=== PATIENT | female | born 1950 | race Caucasian/White ===

== ENCOUNTER 2020-09-29 08:27 | Observation (INO) ==
[2020-09-29] MEDS ORDERED: CeFAZolin Syr 3,000MG/30 ML 3,000 MG/30 ML SYRINGE IVPB ONE (08:52)
[2020-09-29] MEDS ORDERED: Ringers Solution, Lactated 1,000 ML IVC SCH ×2 (09:00→15:09)
[2020-09-29] MEDS ORDERED: *HR* Remifentanil 1 MG VIAL IVP ONE ×2 (09:25→12:26)
[2020-09-29] MEDS ORDERED: Dexamethasone 4 MG/ML VIAL ONE (09:25)
[2020-09-29] MEDS ORDERED: *HR* Midazolam HCl 2 MG/2 ML VIAL ONE (09:25)
[2020-09-29] MEDS ORDERED: *HR* Phenylephrine 10 MG/ML VIAL ONE ×2 (09:25→12:29)
[2020-09-29] MEDS ORDERED: Ondansetron 4 MG/2 ML VIAL ONE (09:25)
[2020-09-29] MEDS ORDERED: Lidocaine -MPF 4% 5 ML AMPUL ONE (09:25)
[2020-09-29] MEDS ORDERED: *HR* Propofol 200 MG/20 ML VIAL IVP ONE (09:25)
[2020-09-29] MEDS ORDERED: *HR* HYDROMORPHONE 2 MG/ML VIAL ONE (09:25)
[2020-09-29] MEDS ORDERED: Lidocaine -MPF 2% 2 ML VIAL ONE (09:25)
[2020-09-29] MEDS ORDERED: *HR* FentaNYL (PF) 100 MCG/2 ML VIAL ONE (09:25)
[2020-09-29] MEDS ORDERED: Bacitracin 50,000 UNIT, Polymyxin B Sulfate 500,000 UNIT, Sodium Chloride IRRigation 1,... IR ONE (10:15)
[2020-09-29] MEDS ORDERED: Ondansetron 4 MG/2 ML VIAL IVP PRN ×2 (10:21→15:09)
[2020-09-29] MEDS ORDERED: *HR* OxyCODONE Immed Rel 5 MG TABLET PO PRN (10:21)
[2020-09-29] MEDS ORDERED: *HR* PHENYLEPHRINE 1,000 MCG/10 ML SYRINGE IVP ONE (10:58)
[2020-09-29] MEDS: *HR* HYDROmorphone PF 0.5 MG/0.5 ML SYRINGE IVP PRN ×6 (13:50→14:15)
[2020-09-29] MEDS: Promethazine 6.25 MG in Water for inj. (sterile) 20 ML IVPB PRN ×2 (14:23→14:34)
[2020-09-29] MEDS ORDERED: Nitroglycerin 0.4 MG TAB.SUBL SL PRN (15:09)
[2020-09-29] MEDS ORDERED: Naloxone 0.4 MG/ML INJ IVP PRN (15:09)
[2020-09-29] MEDS ORDERED: *HR* HYDROcodone/Acet 5/325 mg TABLET PO PRN (15:09)
[2020-09-29] MEDS ORDERED: Acetaminophen 325 MG TABLET PO PRN (15:09)
[2020-09-29] MEDS: Ranolazine 500 MG TAB.ER.12H PO SCH (16:22)
[2020-09-29] MEDS: CeFAZolin 2 GM/120 ML BAG IVPB SCH (17:07)
[2020-09-29] MEDS: Insulin LISPRO 300 UNITS/3 ML VIAL SUBQ SCH (17:08)
[2020-09-29] MEDS: Budesonide/Formoterol 80/4.5 1 PUFF INH IH SCH (20:03)
[2020-09-29] MEDS: Insulin DETEMIR 100 UNIT/ML X5UNITS SUBQ SCH (22:46)
[2020-09-29] MEDS: hydrALAZINE 25 MG TABLET PO SCH (22:46)
[2020-09-29] MEDS: OXcarbazepine 150 MG TABLET PO SCH (22:46)
[2020-09-29] MEDS: *HR* OxyCODONE Immed Rel 5 MG TABLET PO PRN (22:48)
[2020-09-30] MEDS: CeFAZolin 2 GM/120 ML BAG IVPB SCH (00:44)
[2020-09-30] MEDS: *HR* OxyCODONE Immed Rel 5 MG TABLET PO PRN ×2 (03:22→20:56)
[2020-09-30] MEDS: Ranolazine 500 MG TAB.ER.12H PO SCH ×2 (03:22→15:33)
[2020-09-30] MEDS: *HR* SitaGLIPtin 100 MG TABLET PO SCH (07:54)
[2020-09-30] MEDS: OXcarbazepine 150 MG TABLET PO SCH ×2 (07:54→20:57)
[2020-09-30] MEDS: Loratadine 10 MG TABLET PO SCH (07:54)
[2020-09-30] MEDS: lisinopriL 10 MG TABLET PO SCH (07:54)
[2020-09-30] MEDS: Metoprolol XL (24 HR) Succ 50 MG TAB.ER.24H PO SCH (07:54)
[2020-09-30] MEDS: Aspirin Enteric Coated 81 MG Tablet PO SCH (07:54)
[2020-09-30] MEDS: hydrALAZINE 25 MG TABLET PO SCH ×2 (07:55→20:56)
[2020-09-30] MEDS: Insulin LISPRO 300 UNITS/3 ML VIAL SUBQ SCH ×3 (07:56→17:34)
[2020-09-30] MEDS: Budesonide/Formoterol 80/4.5 1 PUFF INH IH SCH ×2 (08:20→20:37)
[2020-09-30] MEDS: (Empagliflozin [Jardiance] 25 MG) PO SCH (15:34)
[2020-09-30] MEDS: Insulin DETEMIR 100 UNIT/ML X5UNITS SUBQ SCH (20:56)
[2020-10-01] MEDS: Ranolazine 500 MG TAB.ER.12H PO SCH (02:28)
[2020-10-01] MEDS: *HR* OxyCODONE Immed Rel 5 MG TABLET PO PRN (07:15)
[2020-10-01] MEDS: Insulin LISPRO 300 UNITS/3 ML VIAL SUBQ SCH ×2 (07:28→12:03)
[2020-10-01] MEDS: Budesonide/Formoterol 80/4.5 1 PUFF INH IH SCH (07:59)
[2020-10-01] MEDS: lisinopriL 10 MG TABLET PO SCH (08:49)
[2020-10-01] MEDS: *HR* SitaGLIPtin 100 MG TABLET PO SCH (08:49)
[2020-10-01] MEDS: hydrALAZINE 25 MG TABLET PO SCH (08:49)
[2020-10-01] MEDS: OXcarbazepine 150 MG TABLET PO SCH (08:49)
[2020-10-01] MEDS: Aspirin Enteric Coated 81 MG Tablet PO SCH (08:49)
[2020-10-01] MEDS: Loratadine 10 MG TABLET PO SCH (08:49)
[2020-10-01] MEDS: Metoprolol XL (24 HR) Succ 50 MG TAB.ER.24H PO SCH (08:49)
[2020-10-01] MEDS: (Empagliflozin [Jardiance] 25 MG) PO SCH (08:50)
[2020-10-01 15:44] VITALS: BP 122/80
[2020-10-05] MEDS ORDERED: GALCANEZUMAB GNLM 120 MG SQ SCH (09:00)
[2020-10-11] MEDS ORDERED: (Evolocumab [Repatha Sureclick] 140 MG) SQ SCH (09:00)
== END 2020-10-01 17:15 | disposition home health service (06) ==
LOC: 3NENU 08:27 → SAMDAY 08:27 → 2NENU 15:07 → 3NENU 15:20
PROVIDERS: ADMIT Orthopaedic Surgery Orthopaedic Surgery of the Spine; ATTEND Orthopaedic Surgery Orthopaedic Surgery of the Spine